=== PATIENT | male | born 1975 | race Caucasian/White ===

== ENCOUNTER → 2024-06-11 11:38 | Outpatient (REF) | payer BC, SELFPAY ==
[2024-06-11 08:56] LABS: % Basophils 0.5 % (0-2); % Eosinophils 1.2 % (0-6); % Lymphocytes 32.8 % (20.5-51.1); % Neutrophils 57.5 % (42.2-75.2); Absolute Eosinophils 0.1 10^3/uL (0-0.7); Absolute Lymphocytes 1.9 10^3/uL (1.2-3.4); Absolute Monocytes 0.5 10^3/uL (0.1-0.6); Absolute Neutrophils 3.2 10^3/uL (1.4-6.5); Hemoglobin 14.3 g/dL (13.0-18.0); Mean Corp Hgb Conc. 32.5 g/dL (33.0-37.0); Mean Corpuscular Hgb 26.7 pg (27.0-31.0); Mean Corpuscular Volume 82.2 fL (80.0-94.0); Mean Platelet Volume 9.8 fL (7.4-10.4); Platelet Count 260 10^3/uL (130-400); Red Blood Cell Count 5.35 10^6/uL (4.70-6.10); Red Cell Dist. Width 14.8 % (11.5-14.5); White Blood Cell Count 5.6 10^3/uL (4.8-10.8)
== END ==
LOC: OIDL 11:38
PROVIDERS: ATTENDING PHYSICIAN Nurse Practitioner Primary Care
DX: E61.1 Iron deficiency (principal)
CPT/HCPCS: 85025